=== PATIENT | female | born 1950 | race Caucasian/White ===

== ENCOUNTER 2019-08-04 10:08 | Day surgery (SDC) | payer OTHER | END 2019-08-04 16:15 | disposition home or self-care (01) | LOC: CIR.AMB 10:08 | DX: S52.122A Displaced fracture of head of left radius, initial encounter for closed fracture (principal); S42.452A Displaced fracture of lateral condyle of left humerus, initial encounter for closed fracture; S53.22XA Traumatic rupture of left radial collateral ligament, initial encounter; M77.12 Lateral epicondylitis, left elbow ==

== ENCOUNTER 2019-08-31 09:58 | Outpatient (CLI) | payer OTHER | END 2019-08-31 10:01 | disposition home or self-care (01) | LOC: RAD 09:58 | DX: S52.122D Displaced fracture of head of left radius, subsequent encounter for closed fracture with routine healing (principal) ==

== ENCOUNTER → 2019-09-13 10:37 | Outpatient (CLI) | payer OTHER | END | disposition home or self-care (01) | LOC: LAB 10:37 | DX: E78.2 Mixed hyperlipidemia (principal); E03.8 Other specified hypothyroidism; I10 Essential (primary) hypertension; N70.01 Acute salpingitis; D50.0 Iron deficiency anemia secondary to blood loss (chronic); E88.89 Other specified metabolic disorders; M81.8 Other osteoporosis without current pathological fracture; M85.88 Other specified disorders of bone density and structure, other site; E56.1 Deficiency of vitamin K; E55.9 Vitamin D deficiency, unspecified; E21.2 Other hyperparathyroidism ==

== ENCOUNTER 2019-09-22 10:35 | Outpatient (CLI) | payer OTHER | END 2019-09-22 11:00 | disposition home or self-care (01) | LOC: NUCLEAR 10:35 | DX: M81.0 Age-related osteoporosis without current pathological fracture (principal) ==

== ENCOUNTER → 2019-09-22 11:12 | Outpatient (CLI) | payer OTHER | END | disposition home or self-care (01) | LOC: LAB 11:12 | DX: E78.49 Other hyperlipidemia (principal); I10 Essential (primary) hypertension; E03.8 Other specified hypothyroidism; D50.0 Iron deficiency anemia secondary to blood loss (chronic) ==

== ENCOUNTER 2021-08-12 11:03 | Outpatient (CLI) | payer OTHER | END 2021-08-12 11:12 | disposition home or self-care (01) | LOC: MAMO-SONO 11:03 | PROVIDERS: ATTEND Internal Medicine | DX: N64.89 Other specified disorders of breast (principal); R92.1 Mammographic calcification found on diagnostic imaging of breast; Z12.31 Encounter for screening mammogram for malignant neoplasm of breast ==